=== PATIENT | female | born 1970 | race Caucasian/White ===

== ENCOUNTER 2017-03-28 06:43 | Emergency (ER) | payer OTHER ==
--- NOTE | 2017-03-28 06:58 | ED Physician Documentation ---
General Adult - HPI Stated Complaint: abdominal pain Chief Complaint: General Adult Onset: hours Timing: still present Severity: moderate Further Comments: yes (Pt is a 46 yo female with mid abd pain that awakened her from sleep and that radiates to her back. Pt has hx hysterectomy and endometriosis. She takes no medications. She has had nausea.) - ROS CONST: no problems EYES/ENT: none CVS/RESP: none GI/: abdominal pain, nausea MS/SKIN/LYMPH: none - PAST HX Past History: other (, hysterectomy, endometriosis) - SOCIAL HX Smoking History: cigarettes - FAMILY HX Family History: No - VITAL SIGNS Vital Signs: Vital Signs Temp Pulse Resp BP Pulse Ox 97.4 F L 95 H 22 119/75 100 03/28/17 06:46 03/28/17 06:46 03/28/17 06:46 03/28/17 06:46 03/28/17 06:46 - REVIEWED ASSESSMENTS Nursing Assessment Reviewed: Yes Vitals Reviewed: Yes <Waldo Metzger - Last Filed: 03/28/17 07:03> - HPI Additional Information: patient has had cramping, spasm type pain in the mid to upper abd area that started last noc. Has some radiation of the pain in the the mid back area. No precipitating factors noted. Has been nauseated but has not had any vomiting. No previous episodes noted. Had colonoscopy done 27 years ago and was normal. Last normal BM was yesterday. No history of diarrhea or constipation. - ROS GI/: denies: black stools - PAST HX Other History: none Surgeries/Procedures: hysterectomy - SOCIAL HX Alcohol Use: none Drug Use: none - FAMILY HX Family History: Yes (gall bladder problems/ cholelithiasis) - VITAL SIGNS Vital Signs: Vital Signs Temp Pulse Resp BP Pulse Ox 97.4 F L 95 H 22 119/75 100 03/28/17 06:46 03/28/17 06:46 03/28/17 06:46 03/28/17 06:46 03/28/17 06:46 <Haroldo Davila - Last Filed: 03/28/17 09:38> - PAST HX Allergies/Adverse Reactions: Allergies Allergy/AdvReac Type Severity Reaction Status Date / Time No Known Allergies Allergy Verified 03/28/17 07:03 Home Medications: Ambulatory Orders Medication Instructions Recorded NK [NK] 03/28/17 Progress - Progress Progress: GI cocktail NS 1 L IVF Zofran 4 mg IV Care transferred to Dr. Davila at 0700. <Waldo Metzger - Last Filed: 03/28/17 07:03> - Progress Progress: 08:21 Patient is still having some mid to upper abd pain but is some better at this time. Leukocytosis, will get CT scan 09:27 CT scan shows small bowel obstruction, will transfer to [facility]. <Haroldo Davila - Last Filed: 03/28/17 09:38> ED Results Lab/Radiology - Lab Results Lab Results: Lab Results 03/28/17 03/28/17 03/28/17 07:05 07:05 07:05 WBC 15.90 K/ul H K/ul (4.00-12.00) RBC 5.34 M/ul H M/ul (3.90-5.20) Hgb 16.2 g/dL H g/dL (12.0-16.0) Hct 46.6 % H % (34.5-46.5) MCV 87.2 fl fl (80.0-100.0) MCH 30.2 pg pg (28.0-34.0) MCHC 34.7 g/dL g/dL (30.0-36.0) RDW 13.0 % % (11.3-14.3) Plt Count 451 K/mm3 H K/mm3 (130-400) Neut % (Auto) 86.9 % H % (39.0-79.0) Lymph % (Auto) 9.5 % L % (16.0-50.0) [place] % (Auto) 2.1 % % (0.0-11.0) Eos % (Auto) 0.8 % % (0.0-6.8) Baso % (Auto) 0.4 (0.0-1.5) Neut # (Auto) 13.8 # k/uL H # k/uL (1.4-7.7) Lymph # (Auto) 1.5 # k/uL # k/uL (0.6-4.0) [place] # (Auto) 0.3 # k/uL # k/uL (0.0-0.9) Eos # (Auto) 0.1 # k/uL # k/uL (0.0-0.6) Baso # (Auto) 0.1 # k/uL # k/uL (0.0-0.5) Reactive Lymphs % 0.4 % % (0.0-5.0) Reactive Lymphs # 0.1 # k/uL # k/uL (0.0-0.8) Sodium 136 mmol/L mmol/L (136-145) Potassium 4.0 mmol/L mmol/L (3.5-5.1) Chloride 95 mmol/L L mmol/L (98-107) Carbon Dioxide 28 mmol/L mmol/L (22-30) BUN 11 mg/dL mg/dL (7-17) Creatinine 0.80 mg/dL mg/dL (0.52-1.04) Estimated Creat Clear 296 Est GFR ( Amer) > 60 (60 - ) Est GFR (Non-Af Amer) > 60 (60 - ) Glucose 132 mg/dL H mg/dL (74-106) Calcium 9.7 mg/dL mg/dL (8.4-10.2) Total Bilirubin 0.5 mg/dL mg/dL (0.2-1.3) AST 37 U/L U/L (15-46) ALT 34 U/L U/L (13-69) Alkaline Phosphatase 55 U/L U/L (38-126) Total Protein 8.7 g/dL H g/dL (6.3-8.2) Albumin 4.6 g/dL g/dL (3.5-5.0) Lipase 41 U/L U/L (23-300) - Radiology Radiology Impressions: AP view of the abdomen Clinical history: Vomiting with epigastric pain for 24 hours There is dilated single bowel loops in the left lower quadrant of abdomen which could be an ileus. No gastric dilatation. No free air. Mild fecal retention of the right colon . Impression: Dilated single small bowel loop in left lower quadrant of The abdomen could be due to of acute diverticulitis. Please correlate clinically. Examination: CT Abdomen/pelvis History: Abdominal discomfort Comparison exams: Plain film dated 28 March 2017 Technique: CT Abdomen/pelvis with IV protocol. Findings: Liver demonstrates diffuse low attenuation. No central lesion. Spleen , adrenals, pancreas, kidneys and gallbladder are without gross irregularity. No abnormal enhancement. No gallstone. No suspicious renal calcifications. Ureters without central calcification. Bladder margin within normal limits. Mild atherosclerotic disease involving the abdominal aorta. No aneurysm. Numerous dilated loops small bowel with air-fluid levels within the mid to lower abdomen. Free fluid projecting superior to the bladder. No peripheral enhancement to suggest abscess. Stool within the large bowel limiting sensitivity. Appendix is visualized is within normal limits. Osseous structures within normal limits. Lung bases without infiltrate. No effusion. Impression: Small bowel obstruction - transition point likely distal small bowel. Correlate with any pertinent medical/surgical history to determine etiology. Free fluid within the abdomen - no peripheral enhancement to suggest abscess. Consider dedicated small imaging to further evaluate. Surgical consultation recommended if not already obtained. No upper abdominal organ acute inflammatory process. Fatty liver. No gallstone. No suspicious renal calcifications. No suspicious ureteral calcifications. No lung base consolidation or effusion. - Orders Orders: ED Orders Category Date Time Status Place IV Lock 1T Care 03/28/17 07:01 Active ABDOMEN 1 VIEW [RAD] Stat Exams 03/28/[address] ABD & PELVIS W/ CON Stat Exams 03/28/17 Ordered CBC/PLATELET/DIFF Routine Lab 03/28/17 07:05 Completed CMP Routine Lab 03/28/17 07:05 Completed LIPASE Stat Lab 03/28/17 07:05 Completed URINALYSIS Routine Lab 03/28/17 Ordered 0.9 % Sodium Chloride [Normal Saline] 1,000 ml Med 03/28/17 07:01 Discontinued IV Q1H Lidocaine 2%Visc 15ml [Xylocaine] Med 03/28/17 07:04 Discontinued 600 mg .ROUTE .STK-MED ONE Mag Hydrox/Al Hydrox/Simeth [Mylanta] Med 03/28/17 07:04 Discontinued 30 ml PO .STK-MED ONE Mag Hydrox/Al Hydrox/Simeth [Mylanta] 30 ml Med 03/28/17 06:59 Discontinued Lidocaine 2%Visc 15ml [Xylocaine] 20 mg PHENobarb/HYOSCY/ATROPINE/SCOP [] 10 ml PO NOW Ondansetron HCl/Pf [Zofran 4 mg/2 ml] Med 03/28/17 06:59 Discontinued 4 mg IVP NOW ONE <Haroldo Davila - Last Filed: 03/28/17 09:38> General Adult Physical Exam - PHYSICAL EXAM GENERAL APPEARANCE: moderate distress EENT: pharynx normal NECK: normal inspection, supple RESPIRATORY: no resp distress, chest non-tender, breath sounds normal CVS: reg rate & rhythm, heart sounds normal ABDOMEN: soft, tenderness (epigastric/mid-abd tenderness, no guarding/rebound), decreased BS <Waldo Metzger - Last Filed: 03/28/17 07:03> - PHYSICAL EXAM EENT: no signs of dehydration RESPIRATORY: No: wheezes, rales, rhonchi ABDOMEN: no distension. No: rigid, rebound, guarding BACK: normal inspection SKIN: warm/dry, normal color NEURO: oriented X3, cognition normal <Haroldo Davila - Last Filed: 03/28/17 09:38> Discharge <Waldo Metzger - Last Filed: 03/28/17 07:03> Decision to Admit: [id number] Date of Decison to Admit: 03/28/17 Decision Time: 09:32 <Haroldo Davila - Last Filed: 03/28/17 09:38> Clincal Impression: Small bowel obstruction Abdominal pain Qualifiers: Abdominal location: unspecified location Qualified Code(s): R10.9 - Unspecified abdominal pain Referrals: Primary Doctor,No [Primary Care Provider] - Condition: Stable [facility]
[2017-03-28] MEDS ORDERED: ONDANSETRON HCL/PF 4 MG/ 2ML VIAL IVP ONE (06:59)
[2017-03-28] MEDS ORDERED: MAG HYDROX/AL HYDROX/SIMETH 30 ML, Lidocaine 2%Visc 15ml 20 MG, PHENobarb/HYOSCY/ATROPI... PO ONE ×3 (06:59)
[2017-03-28] MEDS ORDERED: 0.9 % SODIUM CHLORIDE 1,000 ML IV ONE (07:01)
[2017-03-28] MEDS ORDERED: MAG HYDROX/AL HYDROX/SIMETH 30 ML UDC PO ONE (07:04)
[2017-03-28] MEDS ORDERED: Lidocaine 2%Visc 15ml 20 MG/ML UDC ONE (07:04)
[2017-03-28 07:21] LABS: BASOPHILS % 0.4 (0.0-1.5); EOSINOPHILS % 0.8 % (0.0-6.8); MEAN CORPUSCULAR HEMOGLOBIN 30.2 pg (28.0-34.0); MEAN CORPUSCULAR VOLUME 87.2 fl (80.0-100.0); MONOCYTES % 2.1 % (0.0-11.0); NEUTROPHILS # 13.8 # k/uL (1.4-7.7)
[2017-03-28 07:30] LABS: eGFR (African) > 60; eGFR (Non-African) > 60
--- NOTE | 2017-03-28 07:35 | Diagnostic Imaging Report ---
[facility] [id number] [facility] [address] [address] Report Submission Date: Mar 28, 2017 7:33:52 AM [employer]ILVER SERVICE [employer]ITER Patient Study Name: MARTHA CLARK Date: Mar 28, 2017 7:18:10 AM SILVER SERVICE WAITER Modality Type: CR Gender: F Description: ABDOMEN : 72 Institution: [facility] Physician: KHUSHBU ALVARES AP view of the abdomen Clinical history: Vomiting with epigastric pain for 24 hours There is dilated single bowel loops in the left lower quadrant of abdomen which could be an ileus. No gastric dilatation. No free air. Mild fecal retention of the right colon . Impression: Dilated single small bowel loop in left lower quadrant of The abdomen could be due to of acute diverticulitis. Please correlate clinically . Electronically signed on Mar 28, 2017 7:33:52 AM SILVER SERVICE WAITER by: Haroldo GARCIA
[2017-03-28] MEDS ORDERED: fentaNYL CITRATE/PF 100 MCG/ 2ML AMP IVP ONE (09:21)
[2017-03-28 10:41] VITALS: BP 111/66
--- NOTE | 2017-03-28 12:55 | Diagnostic Imaging Report ---
NIESHA THEODORE [facility] [id number] [facility] [address] [address] Report Submission Date: Mar 28, 2017 9:13:49 AM [employer] IN NURSING Patient Study Name: MARTHA CLARK Date: Mar 28, 2017 8:37:38 AM ASS[employer] IN NURSING Modality Type: CT\SR Gender: F Description: CT ABD & PELVIS W/ CON : 72 Institution: [facility] Physician: NIESHA THEODORE Examination: CT Abdomen/pelvis History: Abdominal discomfort Comparison exams: Plain film dated 28 March 2017 Technique: CT Abdomen/pelvis with IV protocol. Findings: Liver demonstrates diffuse low attenuation. No central lesion. Spleen , adrenals, pancreas, kidneys and gallbladder are without gross irregularity. No abnormal enhancement. No gallstone. No suspicious renal calcifications. Ureters without central calcification. Bladder margin within normal limits. Mild atherosclerotic disease involving the abdominal aorta. No aneurysm. Numerous dilated loops small bowel with air-fluid levels within the mid to lower abdomen. Free fluid projecting superior to the bladder. No peripheral enhancement to suggest abscess. Stool within the large bowel limiting sensitivity. Appendix is visualized is within normal limits. Osseous structures within normal limits. Lung bases without infiltrate. No effusion. Impression: Small bowel obstruction - transition point likely distal small bowel. Correlate with any pertinent medical/surgical history to determine etiology. Free fluid within the abdomen - no peripheral enhancement to suggest abscess. Consider dedicated small imaging to further evaluate. Surgical consultation recommended if not already obtained. No upper abdominal organ acute inflammatory process. Fatty liver. No gallstone. No suspicious renal calcifications. No suspicious ureteral calcifications. No lung base consolidation or effusion. Electronically signed on Mar 28, 2017 9:13:49 AM ASS[employer]IATE [employer] IN NURSING by: Shreyas GARCIA
[2017-03-29 15:25] LABS: APPEARANCE,URINE CLEAR (CLEAR); COLOR,URINE YELLOW (YELLOW); OCCULT BLOOD,URINE NEGATIVE (NEGATIVE); PH URINE 8.5 (5.0 - 8.0); UROBILINOGEN URINE 0.2 Eu (0.2-1.0)
== END 2017-03-28 10:10 | disposition short-term general hospital (02) ==
LOC: ED 06:43
DX: K56.699 Other intestinal obstruction unspecified as to partial versus complete obstruction (principal); K76.0 Fatty (change of) liver, not elsewhere classified; F17.210 Nicotine dependence, cigarettes, uncomplicated
CPT/HCPCS: 74000; 74177; 80053; 81002; 83690; 85025; A9270; J2405; J3010; J7030; 96361; 96374; 96375; 99284; Q9967; S1016